=== PATIENT | female | born 1980 | race Caucasian/White ===

== ENCOUNTER 2018-09-06 17:31 | Emergency (ER) | payer OTHER ==
[~2018-09-06] VITALS: Wt 98.0 kg
[2018-09-06] MEDS ORDERED: ONDANSETRON 4 MG INJ IV STA (19:26)
[2018-09-06] MEDS ORDERED: KETOROLAC 30 MG INJ IV STA (19:26)
[2018-09-06] MEDS ORDERED: SOD CHLORIDE 0.9% 500 ML IV STA ×2 (19:26→21:23)
[2018-09-06] MEDS ORDERED: PROCHLORPERAZINE 10 MG INJ IV STA (19:26)
[2018-09-06] MEDS ORDERED: MTF1000T PO (22:27)
[2018-09-06 22:43] VITALS: BP 166/93; PULSE 87; RESP 20
--- NOTE | 2018-09-07 05:46 | ERD ---
ER Documentation Chief Complaint Chief Complaint HEADACHE X 5 DAYS HPI Patient is an overweight 38 year old female who presents to the ED with complains of a gradual onset and constant headache for the past 5 days. Patient states headache occurred while she was at school. Headache is described as a "squeezing" type pain, localized to the right side of her temporal scalp and migrating towards the left scalp. Pain is waxing and waning, currently rated as 8/10 in intensity and worse with exposure to light. She reports associated f acial "tingling," with dizziness although no numbness, tingling or focal weakness of her extremities. She also reports some nausea without any vomiting. No changes in vision, chest pain, shortness of breath, palpitations, abdominal pain, dysuria, frequency, urgency. No recent cough or cold like symptoms. No history of migraine headaches. ROS All systems reviewed and are negative except as per history of present illness. Medications Home Meds Active Scripts Metformin* (Glucophage*) 1,000 Mg Tablet, 1000 MG PO BID, #21 TAB Prov:FAHAD TOBIAS PA-C 09/06/18 Allergies Allergies: Coded Allergies: Penicillins (Verified Allergy, Severe, 10/15/14) PMhx/Soc Medical and Surgical Hx: pt denies Medical Hx History of Surgery: Yes () Anesthesia Reaction: No Hx Neurological Disorder: No Hx Respiratory Disorders: No Hx Cardiac Disorders: No Hx Psychiatric Problems: No Hx Miscellaneous Medical Probl: No Hx Alcohol Use: No Hx Substance Use: No Hx Tobacco Use: No Smoking Status: Never smoker FmHx Family History: No diabetes Physical Exam Vitals Vital Signs Date Temp Pulse Resp B/P (MAP) Pulse Ox O2 O2 Flow FiO2 Time Delivery Rate 09/06/18 98.8 87 20 166/93 100 Room Air 22:43 (117) 09/06/18 98.1 91 18 131/58 99 17:33 (82) Physical Exam Const: + Appears uncomfortable, lying supine with arm covering eyes Head: Atraumatic Eyes: Normal Conjunctiva. EOMI. PERRLA. ENT: Normal External Ears, Nose and Mouth. Neck: Full range of motion. No meningismus. Resp: Clear to auscultation bilaterally Cardio: Regular rate and rhythm, no murmurs Abd: Soft, non tender, non distended. Normal bowel sounds Skin: No petechiae or rashes Ext: No cyanosis, or edema Neuro: M/S: Alert and oriented Face: EOMI, face and pharynx with normal sensation and function Motor: Normal strength throughout Sensation: Normal sensation throughout Speech: Normal Cerebel: Normal coordination Normal gait Normal finger to nose DTR: 2+ and symmetric upper/lower extremities Psych: Normal Mood and Affect Result Diagram: 09/06/18193809/06/181938 Results 24 hrs Laboratory Tests Test 09/06/18 19:39 09/06/18 19:51 09/06/18 21:11 09/06/18 22:26 White Blood Count 6.2 10^3/ul Red Blood Count 4.86 10^6/ul Hemoglobin 13.9 g/dl Hematocrit 43.0 % Mean Corpuscular 88.5 fl Volume Mean Corpuscular 28.6 pg Hemoglobin Mean Corpuscular 32.3 g/dl Hemoglobin Concent Red Cell 12.9 % Distribution Width Platelet Count 148 10^3/UL Mean Platelet 12.5 fl Volume Immature 0.200 % Granulocytes % Neutrophils % 47.0 % Lymphocytes % 42.9 % Monocytes % 7.5 % Eosinophils % 1.6 % Basophils % 0.8 % Nucleated Red 0.0 /100WBC Blood Cells % Immature 0.010 10^3/ul Granulocytes # Neutrophils # 2.9 10^3/ul Lymphocytes # 2.7 10^3/ul Monocytes # 0.5 10^3/ul Eosinophils # 0.1 10^3/ul Basophils # 0.1 10^3/ul Nucleated Red 0.0 10^3/ul Blood Cells # Prothrombin Time 12.1 Sec Prothrombin Time 0.9 Ratio INR International 0.89 Normalized Ratio Activated 29.[address] Time Urine Color YELLOW Urine Clarity SLIGHTLY CLOUDY Urine pH 7.0 Urine Specific 1.035 [place] Urine Ketones NEGATIVE mg/dL Urine Nitrite NEGATIVE mg/dL Urine Bilirubin NEGATIVE mg/dL Urine Urobilinogen NEGATIVE mg/dL Urine Leukocyte NEGATIVE Jony/ul Esterase Urine Microscopic 3 /HPF RBC Urine Microscopic 2 /HPF WBC Urine Squamous FEW /HPF Epithelial Cells Urine Hemoglobin NEGATIVE mg/dL Urine Glucose 3+ mg/dL Urine Total NEGATIVE mg/dl Protein Sodium Level 138 mmol/L Potassium Level 4.1 mmol/L Chloride Level 100 mmol/L Carbon Dioxide 32 mmol/L Level Anion Gap 6 Blood Urea 11 mg/dl Nitrogen Creatinine 0.53 mg/dl Est Glomerular > 60 mL/min Filtrat Rate mL/min Glucose Level 337 mg/dl Calcium Level 9.5 mg/dl POC Beta HCG, NEGATIVE Qualitative Bedside Glucose 399 mg/dL 240 mg/dL Current Medications Medications Dose Sig/Melissa Start Time Status Last (Trade) Ordered Route PRN Stop Time Admin Dose Reason Admin Sodium 500 ml @ Q1H STAT 09/06/18 DC 09/06/18 Chloride 500 mls/hr IV 19: 19:54 09/06/18 20:25 10 mg ONCE STAT 09/06/18 DC 09/06/18 Prochlorperaz IV 19: 20:07 ine 09/06/18 19:28 (Compazine Inj) Ondansetron 4 mg ONCE STAT 09/06/18 DC 09/06/18 HCl (Zofran IV 19:26 19:54 Inj) 09/06/18 19:28 Ketorolac 30 mg ONCE STAT 09/06/18 DC 09/06/18 Tromethamine IV 19:26 19:55 (Toradol) 09/06/18 19:28 Sodium 500 ml @ Q1H STAT 09/06/18 DC 09/06/18 Chloride 500 mls/hr IV 21:23 21:38 09/06/18 22:22 Procedures/MDM EMERGENT LABS AND DIAGNOSTIC STUDIES: Lab Results above were reviewed and interpreted by me as below. CBC: no e/o of systemic infection or severe anemia CMP: 337 glucose without e/o severe acidosis, alkalosis, diabetic ketoacidosis, renal failure, liver disease Urine: 3+ glucose, no e/o acute infection or hematuria MEDICAL DECISION MAKING: Patient is a 38 year old female who presents to the ED with complaints of headache and dizziness for the past 5 days. Patient has no focal neurological deficits on physical exam and she does not exhibit any clinical signs suggesting subarachnoid hemorrhage, encephalitis, meningitis, CVA or other emergent intracranial process.. IV access was established and patient was given 1 liter of IVFs, Zofran, Compazine and Toradol with complete improvement of her pain. Labs were unremarkable except for an elevated glucose of 337. I discussed these results with patient at bedside who denied any known history of diabetes. She does state however that she has been more stressed recently and has been "stress eating" with lots of carbs and sugar. Patient was treated with an additional 1L of fluids, glucose improved to 240. I discussed with patient that her symptoms are likely related to her new-found diagnosis of diabetes. She was discharged home with a prescription for Metformin, given copies of her labs and told to follow up with her PCP in 2 days for repeat labs and a1c check. Patient's diabetic symptoms have stabilized here in the emergency department and appear appropriate for outpatient management.No evidence at this time of diabetic ketoacidosis, hyperosmolar syndrome, or severe systemic infection. Strict return precautions given. DISPOSITION PLAN: We discussed follow up with the patient's primary care doctor within 24 to 48 hours. Patient counseled regarding my diagnostic impression and care plan. Prior to discharge all questions answered. Pt agrees with treatment plan and understands strict return precautions. Precautionary instructions provided including instructions to return to the ER if not improving or for any worsening or changing symptoms or concerns. ExitCare instructions provided. Prior to discharge, patients vital signs have been reviewed SPECIALIST FOLLOW UP RECOMMENDED: None Patient has been advised to follow up with primary care in 1-2 days. Patient's blood pressure was elevated (>120/80) but appears stable without evidence of hypertension emergency or urgency. The patient was counseled about the risks of hypertension and urged to pursue outpatient monitoring and therapy within a week with their primary care physician. Departure Diagnosis: Primary Impression: New onset type 2 diabetes mellitus Additional Impressions: Dizziness Headache Condition: Stable Patient Instructions: Diabetes and Heart Disease Additional Instructions: Thank you very much for allowing us to participate in your care. Your health and safety is our top priority at [facility]. Call your primary care doctor TOMORROW for an appointment during the next 2-4 days and bring all the information and medications prescribed. Please take the metformin as prescribed and work hard on decreasing carb intake and increasing exercise at home. If the symptoms get worse and your provider is unavailable, return to the Emergency Department immediately. FAHAD TOBIAS PA-C Sep 07, 2018 05:46
== END 2018-09-06 22:45 | disposition home or self-care (01) ==
LOC: FTE 17:31
DX: E11.9 Type 2 diabetes mellitus without complications (principal); R42 Dizziness and giddiness; R11.0 Nausea
CPT/HCPCS: 36415; 80048; 81001; 81003; 81025; 82962; 85025; 85610; 85730; 96361; 96374; 96375; 99284; J0780; J1885; J2405; J7040